=== PATIENT | male | born 1965 | race African-American/Black ===

== ENCOUNTER 2019-09-27 10:59 | Inpatient (IN) | payer OTHER ==
[2019-09-27 11:32] VITALS: BMI 24.1
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
[2019-09-27] MEDS ORDERED: MAGNESIUM HYDROX 2400MG/30ML ORAL SUSPENSION 30 ML CUP PO PRN (13:30)
[2019-09-27] MEDS ORDERED: IBUPROFEN 400 MG TABLET (FP) PO PRN (13:30)
[2019-09-27] MEDS ORDERED: METHOCARBAMOL 500 MG TABLET PO PRN (13:30)
[2019-09-27] MEDS ORDERED: ACETAMINOPHEN 325 MG TABLET (FP) PO PRN ×2 (13:30)
[2019-09-27] MEDS ORDERED: PROCHLORPERAZINE MALEATE 5 MG TABLET PO PRN (13:30)
[2019-09-27] MEDS ORDERED: BISMUTH SUBSALICYLATE 262 MG/15 ML BTL PO PRN (13:30)
[2019-09-27] MEDS ORDERED: MAGNESIUM CITRATE 300 ML BOTTLE PO PRN (13:30)
[2019-09-27] MEDS ORDERED: cloNIDine HCL 0.1 MG TABLET PO PRN (13:30)
[2019-09-27] MEDS ORDERED: MENTHOL/PHENOL 1 EACH UD MM PRN (13:30)
[2019-09-27] MEDS ORDERED: MAG HYDROX/AL HYDROX/SIMETH 30 ML UNIT-DOSE CUP PO PRN (13:30)
[2019-09-27] MEDS ORDERED: MELATONIN 5 MG TABLETS PO PRN (13:30)
[2019-09-27] MEDS: amLODIPine BESYLATE 10 MG TABLET (FP) PO SCH (14:38)
[2019-09-27] MEDS: LISINOPRIL 5 MG TABLET (FP) PO SCH (14:38)
[2019-09-27] MEDS: ASPIRIN COATED 81 MG TABLET.EC PO SCH (14:38)
[2019-09-27] MEDS: HYDROCHLOROTHIAZIDE 25 MG TABLET (FP) PO SCH (14:38)
[2019-09-27 18:40] LABS: HEMATOCRIT 38.2 % (35.4-49); HEMOGLOBIN 12.4 GM/dL (11.7-16.9); MCH 26.9 pg (25.7-33.7); MCHC 32.4 g/dl (32.0-35.9); MEAN PLT VOLUME 9.3 fl (7.5-11.1); PLATELET COUNT 222 K/MM3 (134-434); RDW 15.9 % (11.9-15.9); WHITE BLOOD COUNT 4.9 K/mm3 (4.0-10.0)
[2019-09-27 18:49] LABS: ALBUMIN 3.5 g/dl (3.4-5.0); BILIRUBIN,TOTAL 0.4 mg/dL (0.2-1); BLOOD UREA NITROGEN 18.2 mg/dL (7-18); CREATININE 0.9 mg/dL (0.55-1.3); POTASSIUM 4.2 mmol/L (3.5-5.1); TOT PROT 7.4 g/dl (6.4-8.2)
[2019-09-27] MEDS ORDERED: METHADONE HCL 10 MG TABLET (FOR DETOX USE ONLY) PO ONE (21:00)
[2019-09-27] MEDS: THIAMINE HCL 100 MG TABLET (FP) PO SCH (22:33)
[2019-09-28] MEDS ORDERED: METHADONE HCL 5 MG TABLET (FOR DETOX USE ONLY) PO ONE (10:00)
[2019-09-28] MEDS: ASPIRIN COATED 81 MG TABLET.EC PO SCH (10:39)
[2019-09-28] MEDS: amLODIPine BESYLATE 10 MG TABLET (FP) PO SCH (10:40)
[2019-09-28] MEDS: LISINOPRIL 5 MG TABLET (FP) PO SCH (10:40)
[2019-09-28] MEDS: HYDROCHLOROTHIAZIDE 25 MG TABLET (FP) PO SCH (10:40)
[2019-09-28] MEDS: PRENATAL VITAMINS W/ FOLIC ACID TABLET (FP) PO SCH (10:40)
--- NOTE | 2019-09-28 17:07 | PN ---
S CIWA - CIWA Score Nausea/Vomitin-No Nausea/No Vomiting BHS COWS - Scale Resting Pulse: 0= [place] 80 or Below Sweatin= Chills/Flushing Restless Observation: 1= Difficult to Sit Still Pupil Size: 0= Normal to Room Light Bone or Joint Aches: 2= Severe Diffuse Aches Runny Nose/ Eye Tearin= None GI Upset > 30mins: 0= None Tremor Observation of Outstretched Hands: 0= None Yawning Observation: 1= 1-2x During Session Anxiety or Irritability: 2=Irritable/Anxious Goose Flesh Skin: 0=Smooth Skin COWS Score: 7 BHS Progress Note (SOAP) Subjective: Body Aches, Anxious, Fatigue. Objective: PATIENT A & O X 3, OBSERVED AMBULATING ON DETOX UNIT UNASSISTED. IN NO ACUTE DISTRESS. 09/28/19 17:08 Vital Signs Temperature 98.5 F 09/28/19 14:00 Pulse Rate 63 09/28/19 14:00 Respiratory Rate 18 09/28/19 14:00 Blood Pressure 146/91 09/28/19 14:00 O2 Sat by Pulse Oximetry (%) Laboratory Tests 09/27/19 09/27/19 09/27/19 13:40 13:40 13:40 WBC 4.9 RBC 4.60 Hgb 12.4 Hct 38.2 MCV 83.0 MCH 26.9 MCHC 32.4 RDW 15.9 Plt Count 222 MPV 9.3 Sodium 140 Potassium 4.2 Chloride 107 Carbon Dioxide 28 Anion Gap 5 L BUN 18.2 H Creatinine 0.9 Est GFR (CKD-EPI)AfAm 111.05 Est GFR (CKD-EPI)NonAf 95.81 Random Glucose 99 Calcium 9.0 Total Bilirubin 0.4 AST 34 ALT 41 Alkaline Phosphatase 141 H Total Protein 7.4 Albumin 3.5 RPR Titer Nonreactive LABS NOTED. Assessment: 09/28/19 17:09 WITHDRAWAL SYMPTOMS. ELEVATED ALKALINE PHOSPHATASE LEVEL. Plan: CONTINUE DETOX. INCREASE DAILY ORAL WATER INTAKE.
[2019-09-28] MEDS: THIAMINE HCL 100 MG TABLET (FP) PO SCH (22:07)
[2019-09-29] MEDS ORDERED: METHADONE HCL 10 MG TABLET (FOR DETOX USE ONLY) PO ONE (10:00)
[2019-09-29] MEDS: LISINOPRIL 5 MG TABLET (FP) PO SCH (10:03)
[2019-09-29] MEDS: HYDROCHLOROTHIAZIDE 25 MG TABLET (FP) PO SCH (10:03)
[2019-09-29] MEDS: ASPIRIN COATED 81 MG TABLET.EC PO SCH (10:03)
[2019-09-29] MEDS: amLODIPine BESYLATE 10 MG TABLET (FP) PO SCH (10:03)
[2019-09-29] MEDS: PRENATAL VITAMINS W/ FOLIC ACID TABLET (FP) PO SCH (10:03)
--- NOTE | 2019-09-29 15:48 | PN ---
BHS COWS - Scale Resting Pulse: 0= [place] 80 or Below Sweatin= Chills/Flushing Restless Observation: 0= Sits Still Pupil Size: 0= Normal to Room Light Bone or Joint Aches: 1= Mild Discomfort Runny Nose/ Eye Tearin= None GI Upset > 30mins: 2= Nausea/Diarrhea Tremor Observation of Outstretched Hands: 0= None Yawning Observation: 0= None Anxiety or Irritability: 1=Feels Anxious/Irritable Goose Flesh Skin: 0=Smooth Skin COWS Score: 5 BHS Progress Note (SOAP) Subjective: Interrupted sleep Objective: 09/29/19 15:45 Last Vital Signs Temp Pulse Resp BP Pulse Ox 98.2 F 55 L 18 148/100 09/29/19 13:42 09/29/19 13:42 09/29/19 13:42 09/29/19 13:42 Elevated b/p: 148/100, has htn (on medication) Laboratory Tests 09/27/19 09/27/19 09/27/19 13:40 13:40 13:40 WBC 4.9 RBC 4.60 Hgb 12.4 Hct 38.2 MCV 83.0 MCH 26.9 MCHC 32.4 RDW 15.9 Plt Count 222 MPV 9.3 Sodium 140 Potassium 4.2 Chloride 107 Carbon Dioxide 28 Anion Gap 5 L BUN 18.2 H Creatinine 0.9 Est GFR (CKD-EPI)AfAm 111.05 Est GFR (CKD-EPI)NonAf 95.81 Random Glucose 99 Calcium 9.0 Total Bilirubin 0.4 AST 34 ALT 41 Alkaline Phosphatase 141 H Total Protein 7.4 Albumin 3.5 RPR Titer Nonreactive Labs reviewed: bun mildly elevated Assessment: 09/29/19 15:48 Withdrawal sxs Noted with azotemia Plan: Continue detox Encouraged PO water intake Patient scheduled for discharge tomorrow Azotemia, mild: encouraged to drink more water HTN: continue antihypertensive medication, monitor b/p
[2019-09-29] MEDS: THIAMINE HCL 100 MG TABLET (FP) PO SCH (21:31)
[2019-09-30] MEDS ORDERED: METHADONE HCL 5 MG TABLET (FOR DETOX USE ONLY) PO ONE (06:00)
[2019-09-30] MEDS ORDERED: TRIMETHOBENZAMIDE HCL 200MG/2ML INJ IM ONE (06:15)
[2019-09-30] MEDS ORDERED: METHADONE HCL 10 MG/1 ML (20ML VIAL) IM ONE (07:46)
--- NOTE | 2019-09-30 08:12 | PN ---
S Progress Note Note: Patient began vomiting at about 6 am and was given Tigan IM. Patient continues to vomit yellowish fluid. C/o generalized abd tenderness upon palpation greater on LUQ. No guarding, no rebound. BS+. Negative McBurney's sign. Patient diaphoretic, + tremors Lungs CTA Vital Signs - 24 hr 09/29/19 09/29/19 09/29/19 09:26 13:42 17:53 Temperature 97.7 F 98.2 F 99.5 F Pulse Rate 61 55 L 62 Respiratory 16 18 18 Rate Blood Pressure 134/91 148/100 124/83 09/29/19 09/30/19 09/30/19 19:57 00:30 03:30 Temperature 98.8 F Pulse Rate 60 Respiratory 18 18 18 Rate Blood Pressure 133/87 09/30/19 06:40 Temperature 98.1 F Pulse Rate 85 Respiratory 18 Rate Blood Pressure 134/99 Plan: Methadone 10 mg IM Increase methadone taper for 3 additional days Zofran SL Protonix
[2019-09-30] MEDS ORDERED: METHADONE DETOX 10 MG/1 ML [20ML VIAL] IM ONE (08:32)
[2019-09-30] MEDS ORDERED: METHADONE HCL 10 MG TABLET PO ONE ×2 (10:00)
--- NOTE | 2019-09-30 10:38 | PN ---
BHS COWS - Scale Resting Pulse: 0= [place] 80 or Below Sweatin= Chills/Flushing Restless Observation: 1= Difficult to Sit Still Pupil Size: 0= Normal to Room Light Bone or Joint Aches: 2= Severe Diffuse Aches Runny Nose/ Eye Tearin= Runny Nose/Eyes GI Upset > 30mins: 2= Nausea/Diarrhea Tremor Observation of Outstretched Hands: 2= Slight Tremor Visible Yawning Observation: 0= None Anxiety or Irritability: 1=Feels Anxious/Irritable Goose Flesh Skin: 0=Smooth Skin COWS Score: 11 S Progress Note (SOAP) Subjective: restless sweats chills body aches nausea Objective: 09/30/19 10:36 Vital Signs Temperature 97.5 F L 09/30/19 09:18 Pulse Rate 51 L 09/30/19 09:18 Respiratory Rate 18 09/30/19 09:18 Blood Pressure 146/81 09/30/19 09:18 O2 Sat by Pulse Oximetry (%) Laboratory Tests 09/27/19 09/27/19 09/27/19 13:40 13:40 13:40 WBC 4.9 RBC 4.60 Hgb 12.4 Hct 38.2 MCV 83.0 MCH 26.9 MCHC 32.4 RDW 15.9 Plt Count 222 MPV 9.3 Sodium 140 Potassium 4.2 Chloride 107 Carbon Dioxide 28 Anion Gap 5 L BUN 18.2 H Creatinine 0.9 Est GFR (CKD-EPI)AfAm 111.05 Est GFR (CKD-EPI)NonAf 95.81 Random Glucose 99 Calcium 9.0 Total Bilirubin 0.4 AST 34 ALT 41 Alkaline Phosphatase 141 H Total Protein 7.4 Albumin 3.5 RPR Titer Nonreactive pt continues to feel withdrawals aaox3 lying in bed no acute distress Assessment: 09/30/19 10:37 withdrawals Plan: continue with increased methadone taper as ordered increase fluids
[2019-09-30] MEDS: PANTOPRAZOLE 40 MG TABLET (FP) PO SCH (15:31)
[2019-09-30] MEDS: ASPIRIN COATED 81 MG TABLET.EC PO SCH (15:31)
[2019-09-30] MEDS: amLODIPine BESYLATE 10 MG TABLET (FP) PO SCH (15:31)
[2019-09-30] MEDS: PRENATAL VITAMINS W/ FOLIC ACID TABLET (FP) PO SCH (15:31)
[2019-09-30] MEDS: LISINOPRIL 5 MG TABLET (FP) PO SCH (15:32)
[2019-09-30] MEDS: HYDROCHLOROTHIAZIDE 25 MG TABLET (FP) PO SCH (15:32)
[2019-09-30] MEDS: THIAMINE HCL 100 MG TABLET (FP) PO SCH (22:07)
[2019-10-01] MEDS: ASPIRIN COATED 81 MG TABLET.EC PO SCH (09:51)
[2019-10-01] MEDS: LISINOPRIL 5 MG TABLET (FP) PO SCH (09:51)
[2019-10-01] MEDS: PANTOPRAZOLE 40 MG TABLET (FP) PO SCH (09:51)
[2019-10-01] MEDS: HYDROCHLOROTHIAZIDE 25 MG TABLET (FP) PO SCH (09:51)
[2019-10-01] MEDS: amLODIPine BESYLATE 10 MG TABLET (FP) PO SCH (09:51)
[2019-10-01] MEDS: PRENATAL VITAMINS W/ FOLIC ACID TABLET (FP) PO SCH (09:51)
--- NOTE | 2019-10-01 09:59 | PN ---
BHS COWS - Scale Resting Pulse: 0= [place] 80 or Below Sweatin= Chills/Flushing Restless Observation: 1= Difficult to Sit Still Pupil Size: 0= Normal to Room Light Bone or Joint Aches: 1= Mild Discomfort Runny Nose/ Eye Tearin= Nasal Congestion GI Upset > 30mins: 0= None Tremor Observation of Outstretched Hands: 2= Slight Tremor Visible Yawning Observation: 0= None Anxiety or Irritability: 1=Feels Anxious/Irritable Goose Flesh Skin: 0=Smooth Skin COWS Score: 7 BHS Progress Note (SOAP) Subjective: sweats anxiety otherwise,feeling better than yesterday Objective: 10/01/19 09:58 Vital Signs Temperature 98.2 F 10/01/19 09:21 Pulse Rate 76 10/01/19 09:21 Respiratory Rate 16 10/01/19 09:21 Blood Pressure 119/80 10/01/19 09:21 O2 Sat by Pulse Oximetry (%) Laboratory Tests 09/27/19 09/27/19 09/27/19 13:40 13:40 13:40 WBC 4.9 RBC 4.60 Hgb 12.4 Hct 38.2 MCV 83.0 MCH 26.9 MCHC 32.4 RDW 15.9 Plt Count 222 MPV 9.3 Sodium 140 Potassium 4.2 Chloride 107 Carbon Dioxide 28 Anion Gap 5 L BUN 18.2 H Creatinine 0.9 Est GFR (CKD-EPI)AfAm 111.05 Est GFR (CKD-EPI)NonAf 95.81 Random Glucose 99 Calcium 9.0 Total Bilirubin 0.4 AST 34 ALT 41 Alkaline Phosphatase 141 H Total Protein 7.4 Albumin 3.5 RPR Titer Nonreactive aaox3 ambulating no acute distress Assessment: 10/01/19 09:58 withdrawals Plan: continue detox increase fluids
[2019-10-01] MEDS ORDERED: METHADONE HCL 10 MG TABLET PO ONE ×2 (10:00)
[2019-10-01] MEDS ORDERED: METHADONE HCL 10 MG TABLET (FOR DETOX USE ONLY) PO ONE (10:00)
[2019-10-02] MEDS: THIAMINE HCL 100 MG TABLET (FP) PO SCH ×2 (00:04→22:28)
[2019-10-02] MEDS: HYDROCHLOROTHIAZIDE 25 MG TABLET (FP) PO SCH (09:53)
[2019-10-02] MEDS: LISINOPRIL 5 MG TABLET (FP) PO SCH (09:53)
[2019-10-02] MEDS: ASPIRIN COATED 81 MG TABLET.EC PO SCH (09:53)
[2019-10-02] MEDS: amLODIPine BESYLATE 10 MG TABLET (FP) PO SCH (09:53)
[2019-10-02] MEDS: PANTOPRAZOLE 40 MG TABLET (FP) PO SCH (09:53)
[2019-10-02] MEDS: PRENATAL VITAMINS W/ FOLIC ACID TABLET (FP) PO SCH (09:53)
[2019-10-02] MEDS ORDERED: METHADONE HCL 10 MG TABLET (FOR DETOX USE ONLY) PO ONE (10:00)
[2019-10-02] MEDS ORDERED: METHADONE HCL 10 MG TABLET PO ONE (10:00)
--- NOTE | 2019-10-02 11:50 | PN ---
BHS COWS - Scale Resting Pulse: 1= [place] 81-100 Sweatin= Chills/Flushing Restless Observation: 0= Sits Still Pupil Size: 0= Normal to Room Light Bone or Joint Aches: 1= Mild Discomfort Runny Nose/ Eye Tearin= None GI Upset > 30mins: 2= Nausea/Diarrhea Tremor Observation of Outstretched Hands: 0= None Yawning Observation: 0= None Anxiety or Irritability: 1=Feels Anxious/Irritable Goose Flesh Skin: 0=Smooth Skin COWS Score: 6 BHS Progress Note (SOAP) Subjective: nausea agitation Objective: 10/02/19 11:49 Vital Signs Temperature 96.4 F L 10/02/19 09:35 Pulse Rate 89 10/02/19 09:35 Respiratory Rate 18 10/02/19 09:35 Blood Pressure 132/89 10/02/19 09:35 O2 Sat by Pulse Oximetry (%) aaox3 ambulating no acute distress Assessment: 10/02/19 11:49 mild withdrawals Plan: reid sin pt will complete his detox and can be d/c tomorrow. however pt will remain d/t Thanks and there is no public transportation available tomorrow. Pt can still leave if (there is a rehab bed, or pt choose to leave on his own knowing there is no transportation, or family will p/u) pt was made aware of all his options and in agreement.
[2019-10-03] MEDS ORDERED: METHADONE HCL 5 MG TABLET (FOR DETOX USE ONLY) PO ONE (06:00)
[2019-10-03] MEDS ORDERED: METHADONE HCL 10 MG TABLET PO ONE (06:00)
[2019-10-03] MEDS: ONDANSETRON *ODT* 4 MG TABLET SL PRN (08:00)
--- NOTE | 2019-10-03 10:33 | PN ---
BHS COWS - Scale Resting Pulse: 0= [place] 80 or Below Sweatin= Chills/Flushing Restless Observation: 0= Sits Still Pupil Size: 0= Normal to Room Light Bone or Joint Aches: 1= Mild Discomfort Runny Nose/ Eye Tearin= None GI Upset > 30mins: 0= None Tremor Observation of Outstretched Hands: 1= Tremor [place], Not Seen Yawning Observation: 0= None Anxiety or Irritability: 1=Feels Anxious/Irritable Goose Flesh Skin: 0=Smooth Skin COWS Score: 4 BHS Progress Note (SOAP) Subjective: feeling better little anxious Objective: 10/03/19 10:32 Vital Signs Temperature 98.4 F 10/03/19 06:18 Pulse Rate 101 H 10/03/19 06:18 Respiratory Rate 18 10/03/19 06:18 Blood Pressure 108/57 L 10/03/19 06:18 O2 Sat by Pulse Oximetry (%) aaox3 ambulating no acute distress Assessment: 10/03/19 10:32 mild to no withdrawals noted Plan: pt completed detox maintain pt d/t holiday no means of transportation. pt will stay to go to rehab tomorrow.
[2019-10-03] MEDS: PRENATAL VITAMINS W/ FOLIC ACID TABLET (FP) PO SCH (10:46)
[2019-10-03] MEDS: ASPIRIN COATED 81 MG TABLET.EC PO SCH (10:47)
[2019-10-03] MEDS: PANTOPRAZOLE 40 MG TABLET (FP) PO SCH (10:47)
[2019-10-03] MEDS: HYDROCHLOROTHIAZIDE 25 MG TABLET (FP) PO SCH (11:29)
[2019-10-03] MEDS: LISINOPRIL 5 MG TABLET (FP) PO SCH (11:29)
[2019-10-03] MEDS: amLODIPine BESYLATE 10 MG TABLET (FP) PO SCH (11:29)
[2019-10-03] MEDS: THIAMINE HCL 100 MG TABLET (FP) PO SCH (22:28)
[2019-10-04] MEDS: ONDANSETRON *ODT* 4 MG TABLET SL PRN (05:42)
[2019-10-04 06:12] VITALS: BP 125/84; PULSE 57; TEMP 98.1
--- NOTE | 2019-10-04 09:46 | DS ---
[facility] Detox Discharge Summary Admission Date: 09/27/19 Discharge Date: 10/04/19 - History Present History: Cocaine Dependence, Opioid Dependence - Physical Exam Results Vital Signs: Vital Signs Temperature 98.1 F 10/04/19 06:00 Pulse Rate 57 L 10/04/19 06:00 Respiratory Rate 16 10/04/19 06:00 Blood Pressure 125/84 10/04/19 06:00 O2 Sat by Pulse Oximetry (%) Pertinent Admission Physical Exam Findings: pt arrived in withdrawals Vital Signs Temperature 98.1 F 10/04/19 06:00 Pulse Rate 57 L 10/04/19 06:00 Respiratory Rate 16 10/04/19 06:00 Blood Pressure 125/84 10/04/19 06:00 O2 Sat by Pulse Oximetry (%) Laboratory Tests 09/27/19 09/27/19 09/27/19 13:40 13:40 13:40 WBC 4.9 RBC 4.60 Hgb 12.4 Hct 38.2 MCV 83.0 MCH 26.9 MCHC 32.4 RDW 15.9 Plt Count 222 MPV 9.3 Sodium 140 Potassium 4.2 Chloride 107 Carbon Dioxide 28 Anion Gap 5 L BUN 18.2 H Creatinine 0.9 Est GFR (CKD-EPI)AfAm 111.05 Est GFR (CKD-EPI)NonAf 95.81 Random Glucose 99 Calcium 9.0 Total Bilirubin 0.4 AST 34 ALT 41 Alkaline Phosphatase 141 H Total Protein 7.4 Albumin 3.5 RPR Titer Nonreactive pt aaox3 ambulating no acute distress - Treatment Hospital Course: Detox Protocol Followed, Detoxed Safely, Responded well, Discharged Condition Good, Rehab Referral Accepted Patient has Accepted a Rehab Referral to: pt refused rehab; referral provided - Medication Discharge Medications: Ambulatory Orders Amlodipine Besylate [Norvasc -] 10 mg PO DAILY #30 01/18/17 Aspirin Coated [Ecotrin -] 81 mg PO DAILY #30 tablet.ec 01/18/17 Hydrochlorothiazide [Hctz -] 25 mg PO DAILY #30 tablet 01/18/17 cloNIDine HCL [Catapres -] 0.2 mg PO HS #30 01/18/17 Lisinopril 5 mg PO DAILY 09/27/19 Ranitidine HCl [Zantac] 150 mg PO BID 09/27/19 - Diagnosis (1) Essential hypertension Status: Active (2) hypercholesterolemia Status: Active (3) syncope drug related Status: Active (4) Elevated alkaline phosphatase level Status: Acute (5) Opioid dependence with withdrawal Status: Acute (6) Cocaine dependence Status: Chronic (7) Cocaine dependence, uncomplicated Status: Chronic (8) Opioid dependence Status: Chronic - AMA Did Patient Leave Against Medical Advice: No
== END 2019-10-04 09:03 | disposition home or self-care (01) | DRG 773 ==
LOC: YASAS 10:59 → Y6N 14:05
PROVIDERS: ADMIT Allergy & Immunology; ATTEND Allergy & Immunology
PROC: HZ2ZZZZ Detoxification Services for Substance Abuse Treatment (ICD-10-PCS; principal; 2019-09-27)
DX: F11.23 Opioid dependence with withdrawal (principal); F14.20 Cocaine dependence, uncomplicated; I10 Essential (primary) hypertension; E78.00 Pure hypercholesterolemia, unspecified; R74.8 Abnormal levels of other serum enzymes; Z59.0 Homelessness
CPT/HCPCS: 36415; 71045-TC-FY; 80053; 85027; 86593; Q0162

== ENCOUNTER 2022-04-03 08:57 | Inpatient (IN) | payer OTHER ==
[2022-04-03] MEDS ORDERED: MAGNESIUM HYDROX 2400MG/30ML ORAL SUSPENSION 30 ML CUP PO PRN (09:57)
[2022-04-03] MEDS ORDERED: DICYCLOMINE HCL 10 MG CAPSULE PO PRN (09:57)
[2022-04-03] MEDS ORDERED: MAGNESIUM CITRATE 300 ML BOTTLE PO PRN (09:57)
[2022-04-03] MEDS ORDERED: MELATONIN 5 MG TABLETS PO PRN (09:57)
[2022-04-03] MEDS ORDERED: BISMUTH SUBSALICYLATE 524 MG/30 ML PO PRN (09:57)
[2022-04-03] MEDS ORDERED: ACETAMINOPHEN 325 MG TABLET (FP) PO PRN ×2 (09:57)
[2022-04-03] MEDS ORDERED: ONDANSETRON *ODT* 4 MG TABLET SL PRN (09:57)
[2022-04-03] MEDS ORDERED: LOPERAMIDE HCL 2 MG CAPSULE PO PRN (09:57)
[2022-04-03] MEDS ORDERED: BENZOCAINE/MENTHOL (CHLORASEPTIC ) LOZENGE MM PRN (09:57)
[2022-04-03] MEDS ORDERED: METHOCARBAMOL 500 MG TABLET PO PRN (09:57)
[2022-04-03] MEDS ORDERED: IBUPROFEN 400 MG TABLET (FP) PO PRN (09:57)
[2022-04-03] MEDS ORDERED: MAG HYDROX/AL HYDROX/SIMETH 30 ML UNIT-DOSE CUP PO PRN (09:57)
[2022-04-03] MEDS ORDERED: cloNIDine HCL 0.1 MG TABLET PO ONE (10:00)
[2022-04-03 10:29] VITALS: BMI 24.7
[2022-04-03] MEDS ORDERED: cloNIDine HCL 0.1 MG TABLET ONE (11:17)
[2022-04-03] MEDS ORDERED: methaDONE HCL 10 MG TABLET (FOR DETOX USE ONLY) PO ONE (15:31)
[2022-04-03] MEDS: ASPIRIN COATED 81 MG TABLET.EC PO SCH (15:59)
[2022-04-03] MEDS: LISINOPRIL 5 MG TABLET PO SCH (15:59)
[2022-04-03] MEDS: PRENATAL VITAMINS W/ FOLIC ACID TABLET (FP) PO SCH (16:00)
[2022-04-03] MEDS: hydrOXYzine PAMOATE 25 MG CAPSULE (FP) PO PRN (22:45)
[2022-04-03] MEDS: cloNIDine HCL 0.1 MG TABLET PO SCH (22:45)
[2022-04-03] MEDS: THIAMINE HCL 100 MG TABLET (FP) PO SCH (22:45)
[2022-04-04] MEDS ORDERED: methaDONE HCL 10 MG TABLET (FOR DETOX USE ONLY) ONE (08:28)
[2022-04-04] MEDS: ASPIRIN COATED 81 MG TABLET.EC PO SCH (10:07)
[2022-04-04] MEDS: HYDROCHLOROTHIAZIDE 25 MG TABLET (FP) PO SCH (10:07)
[2022-04-04] MEDS: PRENATAL VITAMINS W/ FOLIC ACID TABLET (FP) PO SCH (10:07)
[2022-04-04] MEDS: LISINOPRIL 5 MG TABLET PO SCH (10:07)
[2022-04-04] MEDS: THIAMINE HCL 100 MG TABLET (FP) PO SCH (22:24)
[2022-04-04] MEDS: cloNIDine HCL 0.1 MG TABLET PO SCH (22:24)
[2022-04-05] MEDS ORDERED: methaDONE HCL 10 MG TABLET (FOR DETOX USE ONLY) PO ONE (10:00)
[2022-04-05] MEDS: HYDROCHLOROTHIAZIDE 25 MG TABLET (FP) PO SCH (10:10)
[2022-04-05] MEDS: LISINOPRIL 5 MG TABLET PO SCH (10:10)
[2022-04-05] MEDS: ASPIRIN COATED 81 MG TABLET.EC PO SCH (10:10)
[2022-04-05] MEDS: PRENATAL VITAMINS W/ FOLIC ACID TABLET (FP) PO SCH (10:10)
[2022-04-05 12:17] LABS: HEMATOCRIT 41.2 % (35.4-49); HEMOGLOBIN 13.1 GM/dL (11.7-16.9); MCH 26.4 pg (25.7-33.7); MCHC 31.9 g/dl (32.0-35.9); MEAN CELL VOLUME 82.7 fl (80-96); MEAN PLT VOLUME 9.3 fl (7.5-11.1); PLATELET COUNT 203 10^3/uL (134-434); RBC 4.97 M/mm3 (4.00-5.60); RDW 14.4 % (11.9-15.9); WHITE BLOOD COUNT 2.7 K/mm3 (4.0-10.0)
[2022-04-05 12:26] LABS: BLOOD UREA NITROGEN 14.6 mg/dL (7-18); CALCIUM 9.2 mg/dL (8.5-10.1)
[2022-04-05 12:29] LABS: CREATININE 0.9 mg/dL (0.55-1.3)
[2022-04-05 12:31] LABS: BILIRUBIN,TOTAL 0.3 mg/dL (0.2-1); TOT PROT 7.1 g/dl (6.4-8.2)
[2022-04-05] MEDS: hydrOXYzine PAMOATE 25 MG CAPSULE (FP) PO PRN (16:38)
[2022-04-05] MEDS: cloNIDine HCL 0.1 MG TABLET PO PRN (17:19)
[2022-04-05] MEDS: cloNIDine HCL 0.1 MG TABLET PO SCH (22:44)
[2022-04-05] MEDS: THIAMINE HCL 100 MG TABLET (FP) PO SCH (22:45)
[2022-04-06] MEDS ORDERED: methaDONE HCL 10 MG TABLET (FOR DETOX USE ONLY) ONE (08:46)
[2022-04-06] MEDS: HYDROCHLOROTHIAZIDE 25 MG TABLET (FP) PO SCH (10:05)
[2022-04-06] MEDS: PRENATAL VITAMINS W/ FOLIC ACID TABLET (FP) PO SCH (10:05)
[2022-04-06] MEDS: ASPIRIN COATED 81 MG TABLET.EC PO SCH (10:05)
[2022-04-06] MEDS: LISINOPRIL 5 MG TABLET PO SCH (10:06)
[2022-04-06] MEDS: cloNIDine HCL 0.1 MG TABLET PO PRN (17:31)
[2022-04-06] MEDS: cloNIDine HCL 0.1 MG TABLET PO SCH (22:10)
[2022-04-06] MEDS: THIAMINE HCL 100 MG TABLET (FP) PO SCH (22:10)
[2022-04-07] MEDS ORDERED: methaDONE HCL 10 MG TABLET (FOR DETOX USE ONLY) PO ONE (10:00)
[2022-04-07] MEDS: LISINOPRIL 5 MG TABLET PO SCH (10:10)
[2022-04-07] MEDS: HYDROCHLOROTHIAZIDE 25 MG TABLET (FP) PO SCH (10:10)
[2022-04-07] MEDS: PRENATAL VITAMINS W/ FOLIC ACID TABLET (FP) PO SCH (10:10)
[2022-04-07] MEDS: ASPIRIN COATED 81 MG TABLET.EC PO SCH (10:10)
[2022-04-07] MEDS: cloNIDine HCL 0.1 MG TABLET PO PRN (17:11)
[2022-04-07] MEDS: cloNIDine HCL 0.1 MG TABLET PO SCH (22:17)
[2022-04-07] MEDS: THIAMINE HCL 100 MG TABLET (FP) PO SCH (22:17)
[2022-04-08 09:01] VITALS: BP 133/82; PULSE 74; TEMP 97.3
== END 2022-04-08 09:09 | disposition home or self-care (01) | DRG 773 ==
LOC: YASAS 08:57 → Y3N 12:29
PROVIDERS: ADMIT Allergy & Immunology; ATTEND Surgery
PROC: HZ2ZZZZ Detoxification Services for Substance Abuse Treatment (ICD-10-PCS; principal; 2022-04-03)
DX: F11.23 Opioid dependence with withdrawal (principal); F14.20 Cocaine dependence, uncomplicated; F12.20 Cannabis dependence, uncomplicated; I10 Essential (primary) hypertension; Z28.310 Unvaccinated for COVID-19; Z59.00 Homelessness unspecified
CPT/HCPCS: 36415; 80053; 85027; 86780; C9803-CS; J0735; Q0162; U0003; U0005